=== PATIENT | female | born 1950 | race Caucasian/White ===

== ENCOUNTER 2017-04-30 08:41 | Inpatient (IN) | payer OTHER ==
[~2017-04-30] VITALS: Ht 162.6 cm; Wt 70.4 kg
[~2017-04-30 08:41] MED LIST: ACT15 PO; ADA30 PO; ALDACTONE25 MG PO; AMLODIPINE BESYL5 M1 PO; APR25 PO; ATORVASTATIN CA80 M1 PO; BENADRYL ALLERG25 M1 PO; BENAZEPRIL40 M1 PO; CAR60 PO; CARVEDILOL12.5 M1 PO; CARVEDILOL25 M1 PO; CARVEDILOL6.25 M1 PO; CLOPIDOGREL75 M1 PO; COLACE100 MG PO; ECO81 PO; FERROUS SULFAT325 M2 PO; FLAGYL500 MG PO; FUROSEMIDE40 MG PO; GLIPIZIDE10 MG PO; GLIPIZIDE5 MG PO; GUAIFENESIN AN118 ML PO; HUMULIN R100 U/1 M1 SC; LAC PO; LAC30L PO; LANTI SQ; LEVAQUIN750 MG PO; LEVEMIR100 U/M1 SQ; LIPITOR80 MG PO; LISINOPRIL10 MG PO; MAPAP500 MG PO; METOLAZONE5 M1 PO; METOPROLOL TART25 M1 PO; OMEPRAZOLE DR20 M1 PO; PEPCID40 MG PO; PRILOSEC20 MG PO; REGLAN5 M1 PO; TYL325 PO; VITAMIN D32000 I2 PO; VITAMIN-D1000 IU PO; VITC PO; ZES20 PO; ZESTRIL40 MG PO; ZOC10 PO; ZOF4 PO; ZOFRAN ODT4 MG SL
[2017-04-30 10:13] LABS: BASOPHIL % 0.2 % (0-2); PLATELET COUNT 206 x10^3mcL (130-400)
[2017-04-30 10:30] LABS: BILIRUBIN TOTAL 0.3 mg/dL (0.20-1.00); CALCIUM 8.6 mg/dL (8.5-10.1); CARBON DIOXIDE 27.8 mmol/L (21-32); TOTAL PROTEIN, SERUM 6.7 g/dL (6.4-8.2)
[2017-04-30 10:37] LABS: RED CELL DISTRIBUTION WIDTH 14.7 % (11.5-14.5)
[2017-04-30 10:38] LABS: ALBUMIN 3.3 g/dL (3.4-5.0); CREATININE SERUM 7.8 mg/dL (0.6-1.0); POTASSIUM SERUM 5.6 mmol/L (3.5-5.1)
[2017-04-30] MEDS ORDERED: PHOSLO667 MG PO (13:39)
[2017-04-30] MEDS ORDERED: HYDRALAZINE HY100 MG PO (13:40)
[2017-04-30] MEDS ORDERED: ALLOPURINOL100 MG PO (13:40)
[2017-04-30] MEDS ORDERED: CATAPRES0.1 MG PO (13:41)
[2017-04-30] MEDS ORDERED: GLIPIZIDE5 M2 PO (13:41)
[2017-04-30] MEDS ORDERED: LOSARTAN POTASS25 M1 PO (13:42)
[2017-04-30] MEDS ORDERED: CARVEDILOL25 M1 PO (13:43)
[2017-04-30] MEDS ORDERED: DIALYVITE 8001 TAB PO (13:43)
[2017-04-30 14:27] VITALS: BP 175/60
[2017-04-30 17:47] VITALS: BP 170/55
[2017-04-30 18:41] LABS: MAGNESIUM 2.7 mg/dL (1.8-2.4); PHOSPHOROUS 6.6 mg/dL (2.5-4.9)
[2017-04-30 18:49] LABS: FREE T4 0.91 ng/dL (0.76-1.46); FREE THYROXINE INDEX 2.4 ug/dL (1.4-4.5); T4(THYROXINE) 7.2 ug/dL (4.7-13.3)
[2017-04-30 18:59] LABS: CHOLESTEROL/HDL RATIO 2.6
[2017-04-30 19:04] LABS: UA SPECIFIC GRAVITY 1.015 (1.005-1.035); microscopic required? YES; urine erythrocyte TRACE (NEGATIVE)
[2017-04-30 19:15] LABS: AMPHETAMINE QUAL UR NONE DETECTED (NEG <=1000)
[2017-04-30 19:47] LABS: T3 TOTAL 0.65 ng/mL
[2017-04-30 19:49] LABS: CALCIUM 8.5 mg/dL (8.5-10.1); CARBON DIOXIDE 24.5 mmol/L (21-32); POTASSIUM SERUM 4.9 mmol/L (3.5-5.1)
[2017-04-30] MEDS ORDERED: NOR10 PO (19:51)
[2017-04-30 19:55] LABS: CREATININE SERUM 7.9 mg/dL (0.6-1.0)
[2017-04-30 21:06] VITALS: BP 180/58
[2017-05-01] VITALS (7 sets, daily range): BP systolic 152–192; BP diastolic 57–68
[2017-05-01 06:06] LABS: BASOPHIL % 0.6 % (0-2); PLATELET COUNT 204 x10^3mcL (130-400); RED CELL DISTRIBUTION WIDTH 14.4 % (11.5-14.5)
[2017-05-01 06:18] LABS: CARBON DIOXIDE 25.9 mmol/L (21-32); POTASSIUM SERUM 4.2 mmol/L (3.5-5.1)
[2017-05-01 06:39] LABS: CREATININE SERUM 8.7 mg/dL (0.6-1.0)
[2017-05-01 07:04] LABS: MAGNESIUM 2.7 mg/dL (1.8-2.4); PHOSPHOROUS 6.6 mg/dL (2.5-4.9)
[2017-05-01 17:56] LABS: BASOPHIL % 0.5 % (0-2); PLATELET COUNT 249 x10^3mcL (130-400); RED CELL DISTRIBUTION WIDTH 14.4 % (11.5-14.5)
[2017-05-01 18:07] LABS: CALCIUM 8.8 mg/dL (8.5-10.1); CARBON DIOXIDE 31.6 mmol/L (21-32); POTASSIUM SERUM 3.9 mmol/L (3.5-5.1)
[2017-05-01 18:09] LABS: CREATININE SERUM 4.3 mg/dL (0.6-1.0)
[2017-05-02 06:22] VITALS: BP 170/65
[2017-05-02 07:00] LABS: CALCIUM 8.2 mg/dL (8.5-10.1); POTASSIUM SERUM 3.6 mmol/L (3.5-5.1)
[2017-05-02 09:00] VITALS: BP 148/58
[2017-05-02 15:50] VITALS: BP 148/67
== END 2017-05-02 13:00 | disposition home or self-care (01) | DRG 682 ==
LOC: ED 08:41 → DU 12:29
PROVIDERS: Emergency Medicine; ADMIT Student in an Organized Health Care Education/Training Program
DX: N18.6 End stage renal disease (principal); G93.41 Metabolic encephalopathy; N39.0 Urinary tract infection, site not specified; I13.11 Hypertensive heart and chronic kidney disease without heart failure, with stage 5 chronic kidney disease, or end stage renal disease; E44.1 Mild protein-calorie malnutrition; N17.0 Acute kidney failure with tubular necrosis; I16.0 Hypertensive urgency; E87.5 Hyperkalemia; E83.41 Hypermagnesemia; E83.39 Other disorders of phosphorus metabolism; E11.51 Type 2 diabetes mellitus with diabetic peripheral angiopathy without gangrene; E11.65 Type 2 diabetes mellitus with hyperglycemia; D63.1 Anemia in chronic kidney disease; Z99.2 Dependence on renal dialysis; Z95.0 Presence of cardiac pacemaker; Z79.4 Long term (current) use of insulin; Z68.26 Body mass index [BMI] 26.0-26.9, adult
CPT/HCPCS: 82962; 83880; 84439; A4719; J0696; J1815; J1885; J3490; J7030; J7050; Q0092

== ENCOUNTER 2017-09-13 14:39 | Emergency (ER) | payer OTHER ==
[~2017-09-13] VITALS: Ht 154.9 cm; Wt 77.1 kg
[~2017-09-13 14:39] MED LIST changes: +ALLOPURINOL100 MG PO; +CATAPRES0.1 MG PO; +DIALYVITE 8001 TAB PO; +GLIPIZIDE5 M2 PO; +HYDRALAZINE HY100 MG PO; +LOSARTAN POTASS25 M1 PO; +NOR10 PO; +PHOSLO667 MG PO
[2017-09-13] MEDS ORDERED: ZOCOR80 MG PO (15:22)
[2017-09-13] MEDS ORDERED: LASIX40 MG PO (15:22)
[2017-09-13] MEDS ORDERED: REG5 PO (15:22)
[2017-09-13] MEDS ORDERED: PRILOSEC OTC20 M1 PO (15:23)
[2017-09-13 16:31] LABS: BASOPHIL % 0.2 % (0-2); PLATELET COUNT 202 x10^3mcL (130-400); RED CELL DISTRIBUTION WIDTH 14.3 % (11.5-14.5)
[2017-09-13 16:44] LABS: BILIRUBIN TOTAL 0.3 mg/dL (0.20-1.00); CALCIUM 8.3 mg/dL (8.5-10.1); CARBON DIOXIDE 28.2 mmol/L (21-32); TOTAL PROTEIN, SERUM 7.1 g/dL (6.4-8.2)
[2017-09-13 16:45] LABS: ALBUMIN 3.3 g/dL (3.4-5.0)
[2017-09-13 18:27] VITALS: BP 154/67
== END 2017-09-13 18:39 | disposition home or self-care (01) ==
LOC: ED 14:39
PROVIDERS: Emergency Medicine
DX: R10.9 Unspecified abdominal pain (principal); R11.2 Nausea with vomiting, unspecified; I10 Essential (primary) hypertension; E11.9 Type 2 diabetes mellitus without complications; E78.00 Pure hypercholesterolemia, unspecified; Z88.0 Allergy status to penicillin; Z88.5 Allergy status to narcotic agent; Z88.6 Allergy status to analgesic agent; Z79.84 Long term (current) use of oral hypoglycemic drugs
CPT/HCPCS: 83880; J1170; J2405; J7030

== ENCOUNTER 2017-12-11 13:29 | Inpatient (IN) | payer OTHER ==
[~2017-12-11] VITALS: Ht 162.6 cm; Wt 74.5 kg
[~2017-12-11 13:29] MED LIST changes: +LASIX40 MG PO; +PRILOSEC OTC20 M1 PO; +REG5 PO; +ZOCOR80 MG PO
[2017-12-11 15:14] LABS: PLATELET COUNT 258 x10^3mcL (130-400)
[2017-12-11 15:15] LABS: BASOPHIL % 0 % (0-2); RED CELL DISTRIBUTION WIDTH 15.1 % (11.5-14.5)
[2017-12-11 15:29] LABS: ALBUMIN 3.5 g/dL (3.4-5.0); BILIRUBIN TOTAL 0.4 mg/dL (0.20-1.00); CALCIUM 9.4 mg/dL (8.5-10.1); CARBON DIOXIDE 17.9 mmol/L (21-32)
[2017-12-11 15:32] LABS: CHOLESTEROL/HDL RATIO 2.4
[2017-12-11 15:33] LABS: POTASSIUM SERUM 7.1 mmol/L (3.5-5.1)
[2017-12-11 15:34] LABS: CREATININE SERUM 10.5 mg/dL (0.6-1.0)
[2017-12-11 15:37] LABS: microscopic required? YES; urine erythrocyte 1+ (NEGATIVE)
[2017-12-11 16:05] LABS: FREE T4 0.88 ng/dL (0.76-1.46); FREE THYROXINE INDEX 1.8 ug/dL (1.4-4.5); T4(THYROXINE) 5.1 ug/dL (4.7-13.3)
[2017-12-11 16:17] LABS: T3 TOTAL 0.39 ng/mL
[2017-12-11 16:25] LABS: MAGNESIUM 2.3 mg/dL (1.8-2.4); PHOSPHOROUS 6.4 mg/dL (2.5-4.9)
[2017-12-11] MEDS ORDERED: SIMVASTATIN20 M1 PO (16:28)
[2017-12-11] MEDS ORDERED: ALLOPURINOL100 MG PO (16:30)
[2017-12-11 17:19] VITALS: BP 197/66
[2017-12-11 21:00] VITALS: BP 148/66
[2017-12-12 00:25] LABS: CALCIUM 8.9 mg/dL (8.5-10.1); POTASSIUM SERUM 3.2 mmol/L (3.5-5.1)
[2017-12-12 00:50] LABS: CREATININE SERUM 4.6 mg/dL (0.6-1.0)
[2017-12-12 05:54] VITALS: BP 169/61
[2017-12-12 08:38] LABS: BASOPHIL % 0.4 % (0-2); PLATELET COUNT 230 x10^3mcL (130-400); RED CELL DISTRIBUTION WIDTH 15.2 % (11.5-14.5)
[2017-12-12 09:20] LABS: CALCIUM 8.5 mg/dL (8.5-10.1); CARBON DIOXIDE 29.3 mmol/L (21-32); MAGNESIUM 1.8 mg/dL (1.8-2.4); PHOSPHOROUS 5.2 mg/dL (2.5-4.9); POTASSIUM SERUM 3.9 mmol/L (3.5-5.1)
[2017-12-12 09:29] LABS: CREATININE SERUM 5.9 mg/dL (0.6-1.0)
[2017-12-12 10:36] VITALS: BP 157/55
[2017-12-12 13:38] VITALS: BP 124/47
[2017-12-12 13:50] VITALS: BP 101/41
[2017-12-12 17:46] VITALS: BP 122/55
[2017-12-12 22:13] VITALS: BP 116/52
[2017-12-13 06:05] VITALS: BP 105/59
[2017-12-13 06:41] VITALS: BP 122/41
[2017-12-13 07:19] LABS: BASOPHIL % 0.7 % (0-2); PLATELET COUNT 198 x10^3mcL (130-400)
[2017-12-13 07:25] LABS: RED CELL DISTRIBUTION WIDTH 15.4 % (11.5-14.5)
[2017-12-13 07:36] LABS: CARBON DIOXIDE 27.7 mmol/L (21-32); MAGNESIUM 1.8 mg/dL (1.8-2.4); PHOSPHOROUS 5.3 mg/dL (2.5-4.9); POTASSIUM SERUM 4.4 mmol/L (3.5-5.1)
[2017-12-13 07:37] LABS: CREATININE SERUM 7.7 mg/dL (0.6-1.0)
[2017-12-13 08:10] VITALS: BP 143/56
[2017-12-13] MEDS ORDERED: LEVEMIR100 U/M1 SQ (14:47)
[2017-12-13] MEDS ORDERED: BACLOFEN10 MG PO (14:47)
[2017-12-13 15:23] VITALS: BP 143/56
== END 2017-12-13 16:49 | disposition home or self-care (01) | DRG 438 ==
LOC: ED 13:29 → MU 15:50 → DU 15:50 → MU 12-12 17:40
PROVIDERS: Family Medicine; Specialist
PROC: 5A1D70Z Performance of Urinary Filtration, Intermittent, Less than 6 Hours Per Day (ICD-10-PCS; principal; 2017-12-11)
PROC: 5A1D70Z Performance of Urinary Filtration, Intermittent, Less than 6 Hours Per Day (ICD-10-PCS; 2017-12-13)
DX: K85.90 Acute pancreatitis without necrosis or infection, unspecified (principal); N18.6 End stage renal disease; N17.0 Acute kidney failure with tubular necrosis; I12.0 Hypertensive chronic kidney disease with stage 5 chronic kidney disease or end stage renal disease; E87.2 Acidosis; E78.00 Pure hypercholesterolemia, unspecified; E87.5 Hyperkalemia; E11.22 Type 2 diabetes mellitus with diabetic chronic kidney disease; E11.51 Type 2 diabetes mellitus with diabetic peripheral angiopathy without gangrene; D64.9 Anemia, unspecified; E11.65 Type 2 diabetes mellitus with hyperglycemia; E78.5 Hyperlipidemia, unspecified; I16.0 Hypertensive urgency; E83.39 Other disorders of phosphorus metabolism; Z95.0 Presence of cardiac pacemaker; Z99.2 Dependence on renal dialysis; Z90.710 Acquired absence of both cervix and uterus; Z82.49 Family history of ischemic heart disease and other diseases of the circulatory system; Z88.6 Allergy status to analgesic agent; Z88.0 Allergy status to penicillin; Z88.8 Allergy status to other drugs, medicaments and biological substances; Z90.5 Acquired absence of kidney; Z79.4 Long term (current) use of insulin; Z79.899 Other long term (current) drug therapy
CPT/HCPCS: 36600; 82962; 83880; 84439; 87804; J1815; J2405; J3010; J3490; J7030; J7040; J8597; Q0092

== ENCOUNTER 2017-12-17 08:48 | Inpatient (IN) | payer OTHER ==
[~2017-12-17] VITALS: Ht 160 cm; Wt 74.1 kg
[2017-12-17] VITALS (9 sets, daily range): BP systolic 138–194; BP diastolic 52–72; Ht 160 cm; Wt 74.1 kg
[~2017-12-17 08:48] MED LIST changes: +BACLOFEN10 MG PO; +SIMVASTATIN20 M1 PO
[2017-12-17 09:48] LABS: PLATELET COUNT 191 x10^3mcL (130-400); RED CELL DISTRIBUTION WIDTH 14.9 % (11.5-14.5)
[2017-12-17 09:49] LABS: BASOPHIL % 0 % (0-2)
[2017-12-17 10:02] LABS: ALBUMIN 3.4 g/dL (3.4-5.0); BILIRUBIN TOTAL 0.35 mg/dL (0.20-1.00); CALCIUM 8.7 mg/dL (8.5-10.1); CARBON DIOXIDE 25.3 mmol/L (21-32); POTASSIUM SERUM 4.3 mmol/L (3.5-5.1); TOTAL PROTEIN, SERUM 6.7 g/dL (6.4-8.2)
[2017-12-17 10:07] LABS: CREATININE SERUM 7.9 mg/dL (0.6-1.0)
[2017-12-17 14:18] LABS: CHOLESTEROL/HDL RATIO 2.9; MAGNESIUM 2.3 mg/dL (1.8-2.4); PHOSPHOROUS 3.3 mg/dL (2.5-4.9)
[2017-12-17 14:23] LABS: FREE T4 0.99 ng/dL (0.76-1.46); FREE THYROXINE INDEX 2.4 ug/dL (1.4-4.5); T4(THYROXINE) 6.5 ug/dL (4.7-13.3)
[2017-12-17 14:29] LABS: T3 TOTAL 0.59 ng/mL
[2017-12-18 05:17] VITALS: BP 158/54
[2017-12-18 08:03] LABS: BASOPHIL % 0.1 % (0-2); PLATELET COUNT 201 x10^3mcL (130-400)
[2017-12-18 08:20] LABS: CALCIUM 8.5 mg/dL (8.5-10.1); CARBON DIOXIDE 29.1 mmol/L (21-32); MAGNESIUM 2.2 mg/dL (1.8-2.4); PHOSPHOROUS 4.8 mg/dL (2.5-4.9); POTASSIUM SERUM 4.1 mmol/L (3.5-5.1)
[2017-12-18 08:21] LABS: RED CELL DISTRIBUTION WIDTH 14.9 % (11.5-14.5)
[2017-12-18 08:27] LABS: CREATININE SERUM 6.3 mg/dL (0.6-1.0)
[2017-12-18 09:50] VITALS: BP 164/58
[2017-12-18 13:35] VITALS: BP 167/60
[2017-12-18 17:43] VITALS: BP 157/54
[2017-12-18 20:46] VITALS: BP 161/57
[2017-12-19 05:55] VITALS: BP 134/52
[2017-12-19 06:42] LABS: BASOPHIL % 0.3 % (0-2); PLATELET COUNT 207 x10^3mcL (130-400); RED BLOOD CELLS 2.84 M/mm3 (4.10-5.10)
[2017-12-19 07:09] LABS: CALCIUM 8.4 mg/dL (8.5-10.1); CARBON DIOXIDE 26.9 mmol/L (21-32); MAGNESIUM 2.5 mg/dL (1.8-2.4); PHOSPHOROUS 5.4 mg/dL (2.5-4.9); POTASSIUM SERUM 4.4 mmol/L (3.5-5.1)
[2017-12-19 07:19] LABS: IRON 34 ug/dL (50-170); TOTAL IRON BINDING CAPACITY 149 ug/dL (250-450)
[2017-12-19 07:21] LABS: CREATININE SERUM 8.4 mg/dL (0.6-1.0)
[2017-12-19 08:50] VITALS: BP 142/47
[2017-12-19 13:00] VITALS: BP 149/56
[2017-12-19 17:12] VITALS: BP 145/47
[2017-12-19 19:20] VITALS: BP 134/50
[2017-12-19 20:37] VITALS: BP 145/53
[2017-12-20 05:33] VITALS: BP 159/51
[2017-12-20 06:27] LABS: BASOPHIL % 0.4 % (0-2); PLATELET COUNT 181 x10^3mcL (130-400)
[2017-12-20 06:36] LABS: CALCIUM 8.2 mg/dL (8.5-10.1); CARBON DIOXIDE 29.4 mmol/L (21-32); PHOSPHOROUS 6.2 mg/dL (2.5-4.9); POTASSIUM SERUM 4.7 mmol/L (3.5-5.1)
[2017-12-20 06:39] LABS: CREATININE SERUM 10.1 mg/dL (0.6-1.0)
[2017-12-20 06:40] LABS: RED CELL DISTRIBUTION WIDTH 15.3 % (11.5-14.5)
[2017-12-20 07:40] VITALS: BP 154/54
[2017-12-20 12:10] VITALS: BP 147/45
[2017-12-20 13:28] LABS: UA SPECIFIC GRAVITY 1.015 (1.005-1.035); microscopic required? YES; urine erythrocyte TRACE (NEGATIVE)
[2017-12-20 13:43] LABS: AMPHETAMINE QUAL UR NONE DETECTED (NEG <=1000)
[2017-12-20 16:52] VITALS: BP 127/45
[2017-12-20 19:30] VITALS: BP 133/52
[2017-12-21 06:11] VITALS: BP 134/51
[2017-12-21 06:36] LABS: BASOPHIL % 0.4 % (0-2); PLATELET COUNT 183 x10^3mcL (130-400)
[2017-12-21 06:47] LABS: RED CELL DISTRIBUTION WIDTH 15.1 % (11.5-14.5)
[2017-12-21 06:48] LABS: CALCIUM 8.3 mg/dL (8.5-10.1); CARBON DIOXIDE 27.5 mmol/L (21-32); MAGNESIUM 2.3 mg/dL (1.8-2.4); PHOSPHOROUS 4.9 mg/dL (2.5-4.9); POTASSIUM SERUM 3.8 mmol/L (3.5-5.1)
[2017-12-21 09:51] VITALS: BP 144/55
[2017-12-21] MEDS ORDERED: LEVAQUIN750 MG PO (12:08)
[2017-12-21] MEDS ORDERED: METP PO (12:15)
[2017-12-21] MEDS ORDERED: GABAPENTIN300 M4 PO (12:16)
[2017-12-21] MEDS ORDERED: LAC PO (12:17)
[2017-12-21 13:48] VITALS: BP 112/41
[2017-12-21 14:14] VITALS: BP 112/41
[2017-12-21 17:22] VITALS: BP 106/41
== END 2017-12-21 20:59 | DRG 393 ==
LOC: ED 08:48 → DU 10:29
PROVIDERS: Emergency Medicine; Family Medicine; Internal Medicine Gastroenterology
PROC: 0DB78ZX Excision of Stomach, Pylorus, Via Natural or Artificial Opening Endoscopic, Diagnostic (ICD-10-PCS; principal; 2017-12-19 10:30)
PROC: 0DB98ZX Excision of Duodenum, Via Natural or Artificial Opening Endoscopic, Diagnostic (ICD-10-PCS; 2017-12-19 10:30)
PROC: 0DBN8ZX Excision of Sigmoid Colon, Via Natural or Artificial Opening Endoscopic, Diagnostic (ICD-10-PCS; 2017-12-20)
PROC: 0DBP8ZX Excision of Rectum, Via Natural or Artificial Opening Endoscopic, Diagnostic (ICD-10-PCS; 2017-12-20)
PROC: 0DBF8ZZ Excision of Right Large Intestine, Via Natural or Artificial Opening Endoscopic (ICD-10-PCS; 2017-12-20)
DX: K63.5 Polyp of colon (principal); N18.6 End stage renal disease; G93.41 Metabolic encephalopathy; I12.0 Hypertensive chronic kidney disease with stage 5 chronic kidney disease or end stage renal disease; N39.0 Urinary tract infection, site not specified; I42.9 Cardiomyopathy, unspecified; K29.70 Gastritis, unspecified, without bleeding; G90.8 Other disorders of autonomic nervous system; E78.00 Pure hypercholesterolemia, unspecified; E11.22 Type 2 diabetes mellitus with diabetic chronic kidney disease; Z99.2 Dependence on renal dialysis; E11.51 Type 2 diabetes mellitus with diabetic peripheral angiopathy without gangrene; Z90.710 Acquired absence of both cervix and uterus; E78.1 Pure hyperglyceridemia; E11.21 Type 2 diabetes mellitus with diabetic nephropathy; K29.80 Duodenitis without bleeding; E83.39 Other disorders of phosphorus metabolism; K57.30 Diverticulosis of large intestine without perforation or abscess without bleeding; K44.9 Diaphragmatic hernia without obstruction or gangrene; I08.1 Rheumatic disorders of both mitral and tricuspid valves; E11.65 Type 2 diabetes mellitus with hyperglycemia; D63.8 Anemia in other chronic diseases classified elsewhere; K59.00 Constipation, unspecified; E66.9 Obesity, unspecified; Z88.0 Allergy status to penicillin; Z82.49 Family history of ischemic heart disease and other diseases of the circulatory system; Z88.8 Allergy status to other drugs, medicaments and biological substances; Z95.0 Presence of cardiac pacemaker; Z88.5 Allergy status to narcotic agent; Z90.5 Acquired absence of kidney; Z79.4 Long term (current) use of insulin
CPT/HCPCS: 43235; 45378; 72072; 82962; 83880; 84439; 94150; 97110-GP; 97116-GP; 97530-GP; A4719; G0378; G0480; J0360; J0696; J1200; J1610; J1815; J1885; J1956; J2250; J2270; J2310; J2405; J3010; J3490; J7030; J7040; J7620; J8597; Q0092

== ENCOUNTER 2018-08-17 08:25 | Inpatient (IN) | payer OTHER ==
[~2018-08-17] VITALS: Ht 157.5 cm; Wt 73.8 kg
[~2018-08-17 08:25] MED LIST changes: +CLONIDINE HCL0.2 MG PO; +GABAPENTIN300 M4 PO; +LISINOPRIL20 MG PO; +METP PO; +NOR5 PO
[2018-08-17 08:40] VITALS: Ht 157.5 cm; Wt 73.8 kg
[2018-08-17] MEDS ORDERED: PRINIVIL20 MG PO (09:23)
[2018-08-17] MEDS ORDERED: SIMVASTATIN20 M1 PO (09:24)
[2018-08-17] MEDS ORDERED: GABAPENTIN100 M2 PO (09:24)
[2018-08-17] MEDS ORDERED: METOCLOPRAMIDE H5 M1 PO (09:25)
[2018-08-17] MEDS ORDERED: PROTONIX20 MG PO (09:25)
[2018-08-17 09:33] LABS: BASOPHIL % 0.3 % (0-2); PLATELET COUNT 185 x10^3mcL (130-400)
[2018-08-17 09:36] LABS: RED CELL DISTRIBUTION WIDTH 16.5 % (11.5-14.5)
[2018-08-17 09:56] LABS: BILIRUBIN TOTAL 0.4 mg/dL (0.20-1.00); CARBON DIOXIDE 22.8 mmol/L (21-32); TOTAL PROTEIN, SERUM 6.5 g/dL (6.4-8.2)
[2018-08-17 10:01] LABS: ALBUMIN 3.3 g/dL (3.4-5.0); CREATININE SERUM 9.8 mg/dL (0.6-1.0)
[2018-08-17 11:43] LABS: CHOLESTEROL/HDL RATIO 5.5; PHOSPHOROUS 8.9 mg/dL (2.5-4.9)
[2018-08-17 11:52] LABS: T3 TOTAL 0.53 ng/mL
[2018-08-17 12:08] LABS: FREE T4 0.86 ng/dL (0.76-1.46)
[2018-08-17 12:10] LABS: FREE THYROXINE INDEX 1.6 ug/dL (1.4-4.5); T4(THYROXINE) 4.6 ug/dL (4.7-13.3)
[2018-08-17 12:20] VITALS: BP 166/90
[2018-08-17 18:00] VITALS: BP 127/56
[2018-08-17 19:11] LABS: microscopic required? YES; urine erythrocyte NEGATIVE (NEGATIVE)
[2018-08-17 19:17] LABS: AMPHETAMINE QUAL UR NONE DETECTED (See below)
[2018-08-17 21:00] VITALS: BP 156/60
[2018-08-18 05:54] VITALS: BP 169/69
[2018-08-18 06:32] LABS: BASOPHIL % 0.4 % (0-2); CARBON DIOXIDE 28.7 mmol/L (21-32); MAGNESIUM 2.3 mg/dL (1.8-2.4); PHOSPHOROUS 7.9 mg/dL (2.5-4.9); PLATELET COUNT 198 x10^3mcL (130-400); POTASSIUM SERUM 4.7 mmol/L (3.5-5.1)
[2018-08-18 06:45] LABS: RED CELL DISTRIBUTION WIDTH 16.4 % (11.5-14.5)
[2018-08-18 06:54] LABS: CREATININE SERUM 7.2 mg/dL (0.6-1.0)
[2018-08-18 09:20] VITALS: BP 103/61
[2018-08-18 12:15] VITALS: BP 163/58
[2018-08-18 16:47] VITALS: BP 110/54
[2018-08-18 17:03] VITALS: BP 176/58
[2018-08-18 20:26] VITALS: BP 139/48
[2018-08-19 05:02] VITALS: BP 127/41
[2018-08-19 06:29] LABS: BASOPHIL % 0.5 % (0-2); PLATELET COUNT 228 x10^3mcL (130-400)
[2018-08-19 06:48] LABS: CALCIUM 8.4 mg/dL (8.5-10.1); CARBON DIOXIDE 22.8 mmol/L (21-32); MAGNESIUM 2.6 mg/dL (1.8-2.4); POTASSIUM SERUM 5.1 mmol/L (3.5-5.1)
[2018-08-19 08:04] LABS: PHOSPHOROUS 8.8 mg/dL (2.5-4.9)
[2018-08-19 09:48] VITALS: BP 164/51
[2018-08-19 15:02] VITALS: BP 157/69
[2018-08-19] MEDS ORDERED: COR6 PO (18:38)
[2018-08-19] MEDS ORDERED: ECO81 PO (18:38)
[2018-08-19] MEDS ORDERED: GOOD NEIGH1200 MG/15 PO (18:41)
[2018-08-19] MEDS ORDERED: BISOPROLOL FUMAR5 MG PO (18:44)
[2018-08-19 18:50] VITALS: BP 149/63
== END 2018-08-19 19:43 | disposition home or self-care (01) | DRG 205 ==
LOC: ED 08:25 → DU 11:05
PROVIDERS: Emergency Medicine; Internal Medicine
DX: M94.0 Chondrocostal junction syndrome [Tietze] (principal); N18.6 End stage renal disease; N17.0 Acute kidney failure with tubular necrosis; I12.0 Hypertensive chronic kidney disease with stage 5 chronic kidney disease or end stage renal disease; D68.69 Other thrombophilia; I42.8 Other cardiomyopathies; E11.22 Type 2 diabetes mellitus with diabetic chronic kidney disease; E11.65 Type 2 diabetes mellitus with hyperglycemia; E87.5 Hyperkalemia; E78.5 Hyperlipidemia, unspecified; Z90.5 Acquired absence of kidney; Z99.2 Dependence on renal dialysis; Z68.29 Body mass index [BMI] 29.0-29.9, adult; Z95.1 Presence of aortocoronary bypass graft; Z79.84 Long term (current) use of oral hypoglycemic drugs; Z95.810 Presence of automatic (implantable) cardiac defibrillator
CPT/HCPCS: 82962; 83880; 84439; 85378; C9113; J2405; J8597; Q0092

== ENCOUNTER 2019-01-16 08:23 | Inpatient (IN) | payer OTHER ==
[~2019-01-16] VITALS: Ht 157.5 cm; Wt 65.9 kg
[~2019-01-16 08:23] MED LIST changes: +BISOPROLOL FUMAR5 MG PO; +COR6 PO; +GABAPENTIN100 M2 PO; +GOOD NEIGH1200 MG/15 PO; +METOCLOPRAMIDE H5 M1 PO; +PRINIVIL20 MG PO; +PROTONIX20 MG PO
[2019-01-16 08:33] VITALS: Ht 157.5 cm; Wt 65.9 kg
[2019-01-16 09:29] LABS: BASOPHIL % 0.2 % (0-2); PLATELET COUNT 247 x10^3mcL (130-400)
[2019-01-16 09:44] LABS: ALBUMIN 3.6 g/dL (3.4-5.0); ALKALINE PHOSPHATASE 68 U/L (46-116); ALT/SGPT 20 U/L (14-59); AST/SGOT 10 U/L (15-37); BILIRUBIN TOTAL 0.5 mg/dL (0.20-1.00); CALCIUM 8.4 mg/dL (8.5-10.1); CARBON DIOXIDE 22.9 mmol/L (21-32); CHLORIDE SERUM 98 mmol/L (98-107); CHOLESTEROL 186 mg/dL (<200); GLUCOSE SERUM 207 mg/dL (74-106); SODIUM SERUM 139 mmol/L (136-145); TOTAL PROTEIN, SERUM 7.1 g/dL (6.4-8.2)
[2019-01-16 10:02] LABS: GFR1 4 mL/min; POTASSIUM SERUM 5.8 mmol/L (3.5-5.1)
[2019-01-16 10:03] LABS: CREATININE SERUM 9.3 mg/dL (0.6-1.0)
[2019-01-16 10:29] LABS: AMPHETAMINE QUAL UR NONE DETECTED (See below)
[2019-01-16 10:55] LABS: microscopic required? YES; urine erythrocyte TRACE (NEGATIVE)
[2019-01-16] MEDS ORDERED: ZOFRAN8 MG PO (12:26)
[2019-01-16] MEDS ORDERED: OTEZLA30 MG PO (12:29)
[2019-01-16] MEDS ORDERED: CLARITIN10 MG PO (12:31)
[2019-01-16] MEDS ORDERED: ROPINIROLE HY0.25 MG PO (12:33)
[2019-01-16] MEDS ORDERED: NOVOLIN R100 U/ML SQ (12:35)
[2019-01-16] MEDS ORDERED: DIALYVITE PO (12:37)
[2019-01-16 12:51] LABS: MAGNESIUM 2.7 mg/dL (1.8-2.4); PHOSPHOROUS 7.3 mg/dL (2.5-4.9)
[2019-01-16 13:38] VITALS: BP 177/67
[2019-01-16 16:31] VITALS: BP 157/71
[2019-01-16 21:09] VITALS: BP 154/66
[2019-01-17 05:20] VITALS: BP 146/54
[2019-01-17 06:24] LABS: BASOPHIL % 0.5 % (0-2); CALCIUM 8.7 mg/dL (8.5-10.1); CARBON DIOXIDE 26.9 mmol/L (21-32); PLATELET COUNT 216 x10^3mcL (130-400); POTASSIUM SERUM 4.8 mmol/L (3.5-5.1)
[2019-01-17 06:26] LABS: CREATININE SERUM 6.2 mg/dL (0.6-1.0)
[2019-01-17 08:27] VITALS: BP 114/63
[2019-01-17 17:00] VITALS: BP 131/55
[2019-01-17 21:01] VITALS: BP 124/49
[2019-01-18 05:52] VITALS: BP 136/49
[2019-01-18 06:17] LABS: BASOPHIL % 0.7 % (0-2); PLATELET COUNT 203 x10^3mcL (130-400)
[2019-01-18 06:22] LABS: CALCIUM 8.3 mg/dL (8.5-10.1); CARBON DIOXIDE 24.7 mmol/L (21-32); MAGNESIUM 2.2 mg/dL (1.8-2.4); POTASSIUM SERUM 4.8 mmol/L (3.5-5.1)
[2019-01-18 06:26] LABS: CREATININE SERUM 8.2 mg/dL (0.6-1.0)
[2019-01-18 06:28] LABS: RED CELL DISTRIBUTION WIDTH 16.7 % (11.5-14.5)
[2019-01-18 09:39] VITALS: BP 138/50
[2019-01-18] MEDS ORDERED: REM15 PO (13:52)
[2019-01-18 16:18] VITALS: BP 138/50
== END 2019-01-18 16:43 | disposition home or self-care (01) | DRG 391 ==
LOC: ED 08:23 → MU 11:32
PROVIDERS: Specialist; ADMIT Internal Medicine
PROC: 5A1D70Z Performance of Urinary Filtration, Intermittent, Less than 6 Hours Per Day (ICD-10-PCS; principal; 2019-01-18)
DX: R11.2 Nausea with vomiting, unspecified (principal); N17.0 Acute kidney failure with tubular necrosis; N18.6 End stage renal disease; I12.0 Hypertensive chronic kidney disease with stage 5 chronic kidney disease or end stage renal disease; T50.906A Underdosing of unspecified drugs, medicaments and biological substances, initial encounter; F32.9 Major depressive disorder, single episode, unspecified; E87.5 Hyperkalemia; E87.6 Hypokalemia; E83.41 Hypermagnesemia; E11.22 Type 2 diabetes mellitus with diabetic chronic kidney disease; E11.65 Type 2 diabetes mellitus with hyperglycemia; E78.5 Hyperlipidemia, unspecified; E83.39 Other disorders of phosphorus metabolism; Z68.37 Body mass index [BMI] 37.0-37.9, adult; Z95.0 Presence of cardiac pacemaker; Z79.4 Long term (current) use of insulin; Z79.84 Long term (current) use of oral hypoglycemic drugs; Z90.5 Acquired absence of kidney; Z99.2 Dependence on renal dialysis; Z91.14 Patient's other noncompliance with medication regimen; Z91.15 Patient's noncompliance with renal dialysis; Y92.009 Unspecified place in unspecified non-institutional (private) residence as the place of occurrence of the external cause
CPT/HCPCS: 36600; 82962; G0480; J2405; J2765; J7030; J7050; Q0092